=== PATIENT | female | born 1960 | race Caucasian/White ===

== ENCOUNTER 2024-02-29 16:46 | Emergency (ER) | payer BC, SELFPAY ==
[2024-02-29] VITALS (96 sets, daily range): BP systolic 163–175; BP diastolic 70–78; PULSE 67–75; RESP 8–29; TEMP 36.6; O2SAT 97–100
--- NOTE | 2024-02-29 16:45 | DI.CT_ITS ---
Exam(s) CT HEAD CERV SPINE FACIAL WO EXAM: CT HEAD CERV SPINE FACIAL WO CLINICAL HISTORY: cervical spine tenderness, left facial ecchymosis. TECHNIQUE: Imaging Protocol: Axial computed tomography images with coronal and sagittal reformatted images were created and reviewed COMPARISON: No exams were available for comparison FINDINGS: CT Head: Ventricles and Extra axial spaces: Normal in size and morphology for the patient's age. Hemorrhage: None. Cerebral parenchyma: No evidence of acute hemorrhage or acute infarct. Midline shift: None. Brainstem/Cerebellum: Normal. Calvarium: Normal. Visualized Paranasal sinuses/Mastoids: Clear. Soft Tissues: Unremarkable. CT Face: Facial Bones: Mildly displaced nasal fractures. No additional fractures. Nasal septum deviated tow nita the left. Sinuses and Mastoids: Unremarkable. Globes, extraocular muscles, optic nerves and retrobulbar fat: Normal. Upper aerodigestive tract: Normal. Mandible and bilateral temporomandibular joints: Normal. Soft tissues: Swelling over left maxillary region. CT Cervical Spine: Bones: Mildly comminuted, nondisplaced fracture of the left lateral mass of C1. Fractures of the spi nous processes of C3 through C6. Mildly displaced fracture of the left 1st rib. Fractures of the ri ght 3rd and 4th ribs visible. Degenerative changes greatest at C6-7. Soft Tissues: Tiny right pneumothorax. Lung Apices: Clear. IMPRESSION: 1. No acute intracranial process. 2. Nondisplaced fracture of the lateral mass of C1. Fractures of the spinous processes of C3 through C6. Bilateral rib fractures. Tiny right pneumothorax. 3. Mildly displaced nasal fractures. RADIATION DOSE DELIVERED: Total DLP DATA REPOSITORY: All CT scans at this facility are submitted to the National Radiology Data Registry (NRDR) Dose Index Registry (DIR) with the [employer] (ACR). RADIATION OPTIMIZATION: All CT scans at this facility use at least one of these dose optimization te chniques: automated exposure control; mA and/or kV adjustment per patient size (includes targeted exa ms where dose is matched to clinical indication); or iterative reconstruction.
--- NOTE | 2024-02-29 16:45 | RT.EKG_ITS ---
APPROVED REPORT Exam: Resting ECG Reason for Exam: chest wall contusion Patient Location: E HR:76 bpm ECG Measurements Heart Rate 76 AXIS CA 154 P 64 QRSd 86 QRS 60 QT 389 T 38 QTc 437 Conclusion Sinus rhythm 76 no stemi
--- NOTE | 2024-02-29 16:57 | DI.CT_ITS ---
Exam(s) CT CHEST/ABD/PEL W CT THORACIC LUMBAR SPINE REC EXAM: CT CHEST/ABD/PEL W CLINICAL HISTORY: right chest trauma, thoracic pain. TECHNIQUE: Imaging Protocol: Axial computed tomography images with coronal and sagittal reformatted images were created and reviewed. Axial, coronal and sagittal images of the thoracic and lumbar spine were reconstructed from the chest abdomen pelvic CT in bone and soft tissue algorithm. CONTRAST MATERIAL: Intravenous: Omnipaque 350 Contrast volume:100 ml Oral: no COMPARISON: CT CT THORACIC LUMBAR SPINE REC from 02/29/2024 FINDINGS: CHEST: Tracheobronchial tree: Patent. Pulmonary parenchyma: No consolidation or dominant measurable mass. Basilar atelectasis. Pleura: Tiny bilateral pleural effusions. Tiny bilateral pneumothoraces. Mediastinum: Within normal limits. Aorta: Thoracic portion non-dilated. Pulmonary arteries: No visible emboli. Heart: No pericardial effusion. Bones: Ribs: Fractures of the proximal aspect of the rights 1st and 2nd ribs. Fracture of the posterior asp ect of the right 3rd through 9th ribs. Fracture posterior left 1st rib. Fractures of the left 2nd t hrough 6th as well as 9th and 10th ribs. Thoracic spine: Fracture of the tip of the spinous process of T7. Fracture through the left transverse process of and left inferior articular facet of T8 as well as sp inous process and left lamina. Mild compression fracture of the anterior superior endplate of T9 with minimal retropulsion. Fractur e extends to involve the left transverse process, left pedicle and pars interarticularis. Small bony fragment seen in the right T9-10 neural foramen. Mild compression fracture of the superior endplate of T10 some mild compression of the superior endpl ate of T11 with minimal retropulsion. No lytic or blastic lesions.Soft tissues: Unremarkable. ABDOMEN and PELVIS: Liver: Normal density. No measurable mass. Gallbladder and biliary tract: No evidence of stones or wall thickening. No biliary dilatation. Pancreas: Normal density, no abnormal calcifications or inflammatory process. Spleen: Normal. Kidneys: Normal size, contour and axis. No radiodense stones. No obstructive uropathy. No suspicious masses seen. Adrenal glands: No masses seen. Aorta: Abdominal portion non-dilated. Lymph nodes: Within normal limits. Soft tissues: Unremarkable. Bladder: Unremarkable. Bowel: No obstruction or bowel wall thickening. Peritoneal cavity: No ascites. No focal collection. No mesenteric inflammatory response. No free ai r. Bones: No evidence of acute fracture in the spine or pelvis. Degenerative changes noted from L2-3 th rough L5-S1. Scoliosis also present. Reproductive organs: Within status post hysterectomy. IMPRESSION: Multiple bilateral rib fractures. Tiny pneumothoraces in small bilateral pleural effusions. Mild compression fractures of the T9 through T11 vertebral bodies. Fractures of the posterior elemen ts at T7, T8 and T9. T8 and T9 segments may be unstable. No evidence of internal organ injury in the abdomen or pelvis. No evidence of lumbar spine fracture.. RADIATION DOSE DELIVERED: Total DLP DATA REPOSITORY: All CT scans at this facility are submitted to the National Radiology Data Registry (NRDR) Dose Index Registry (DIR) with the [employer] (ACR). RADIATION OPTIMIZATION: All CT scans at this facility use at least one of these dose optimization te chniques: automated exposure control; mA and/or kV adjustment per patient size (includes targeted exa ms where dose is matched to clinical indication); or iterative reconstruction.
--- NOTE | 2024-02-29 17:00 | DI.RAD_ITS ---
Exam(s) XR HUMERUS RT XR SHOULDER RT COMPLETE 2+V EXAM: XR SHOULDER RT COMPLETE 2+V CLINICAL HISTORY: trauma. TECHNIQUE: 2D digital imaging was performed. Six views of the shoulder.. Two views of the humerus. COMPARISON: CR,XR XR HUMERUS RT from 02/29/2024 FINDINGS: BONES: Fractures of the right 3rd through 6th ribs. No fractures involving the shoulder or humerus. No bony destructive lesion is seen. JOINTS: No dislocation present. SOFT TISSUE: Normal. No visible pneumothorax. IMPRESSION: right rib fractures. No visible pneumothorax. No evidence of shoulder or humeral fracture. DATA REPOSITORY: RADIATION DOSE DELIVERED:
--- NOTE | 2024-02-29 17:00 | DI.RAD_ITS ---
Exam(s) XR HAND RT COMPLETE EXAM: XR HAND RT COMPLETE CLINICAL HISTORY: trauma. TECHNIQUE: 2D digital imaging was performed. Three views. COMPARISON: No exams were available for comparison FINDINGS: BONES: Fractures of the distal 4th and 5th metacarpals with significant ventral angulation and displa cement, greater of the 5th metacarpal. No bony destructive lesion is seen. JOINTS: No dislocation present. Advanced degenerative changes 1st carpal metacarpal joint. Mild deg enerative changes elsewhere. SOFT TISSUE: Normal. IMPRESSION: Fourth and 5th metacarpal fractures. DATA REPOSITORY: RADIATION DOSE DELIVERED:
[2024-02-29] MEDS: Normal Saline 1,000 ML 1000 ML IV (17:02)
--- NOTE | 2024-02-29 17:03 | DI.RAD_ITS ---
Exam(s) XR HAND LT COMPLETE EXAM: XR HAND LT COMPLETE CLINICAL HISTORY: trauma. TECHNIQUE: 2D digital imaging was performed. Three views. COMPARISON: CR,XR XR HAND RT COMPLETE from 02/29/2024 FINDINGS: BONES: Nondisplaced fracture base of 5th metacarpal. No bony destructive lesion is seen. JOINTS: No dislocation present. Degenerative changes 1st carpal metacarpal joint. SOFT TISSUE: Normal. IMPRESSION: Nondisplaced fracture base of 5th metacarpal. DATA REPOSITORY: RADIATION DOSE DELIVERED:
[2024-02-29] MEDS: fentaNYL 100 MCG/2 ML VIAL 50 MCG IVP (17:15)
[2024-02-29] MEDS: Omnipaque 350 MG/ML 100 ML BTL IJ (17:34)
[2024-02-29] MEDS: Normal Saline - Diluent 50 ML VIAL IJ (17:34)
--- NOTE | 2024-02-29 19:03 | DI.VRAD_ITS ---
Addendum created by Sincere Arita MD on 02/29/2024 7:24:28 PM EDT: THIS REPORT CONTAINS FINDINGS THAT MAY BE CRITICAL TO PATIENT CARE. The findings were verbally communicated via telephone conference with Norma Hopkins at 7:24 PM EDT on 02/29/2024. The findings were acknowledged and understood. Initial report created on 02/29/2024 7:03:00 PM EDT: PROCEDURE INFORMATION: Exam: CT Head Without Contrast Exam date and time: 02/29/2024 5:30 PM Age: 63 years old Clinical indication: Other: Trauma, cervical spine tenderness, left facial ecchymosis; Other: Left facial ecchymyosis, trauma TECHNIQUE: Imaging protocol: Computed tomography of the head without contrast. COMPARISON: No relevant prior studies available. FINDINGS: Brain: No intracranial hemorrhage. No cerebral edema. No mass or mass effect. Mild cerebral atrophy appropriate for patient's age. Cerebral ventricles: No ventriculomegaly. Paranasal sinuses: No sinus air-fluid levels. Mastoid air cells: Visualized mastoid air cells are well aerated. Bones: No skull fracture. Soft tissues: Unremarkable. IMPRESSION: 1. No intracranial hemorrhage or cerebral edema. 2. No skull fracture. PROCEDURE INFORMATION: Exam: CT Maxillofacial Without Contrast Exam date and time: 02/29/2024 5:30 PM Age: 63 years old Clinical indication: Other: Trauma, cervical spine tenderness, left facial ecchymosis; Other: Left facial ecchymyosis, trauma TECHNIQUE: Imaging protocol: Computed tomography of the face without contrast. Radiation optimization: All CT scans at this facility use at least one of these dose optimization techniques: automated exposure control; mA and/or kV adjustment per patient size (includes targeted exams where dose is matched to clinical indication); or iterative reconstruction. COMPARISON: No relevant prior studies available. FINDINGS: Orbital cavities: Ocular globes and orbital contents are unremarkable. Paranasal sinuses: No sinus air-fluid levels. Bones: Mild nasal bone fractures with a slight rightward deviation of the nasal structures. Soft tissues: Left maxillary facial soft tissue swelling and soft tissue emphysema consistent with a laceration type injury. There is a hematoma. There is no foreign body. IMPRESSION: 1. Possible nasal bone fracture. Recommend clinical correlation. This could be a chronic process. There is a rightward deviation of the anterior aspect of the nasal bone. Facial bones are otherwise intact. 2. Left maxillary soft tissue contusion and laceration with soft tissue emphysema. No foreign body. PROCEDURE INFORMATION: Exam: CT Cervical Spine Without Contrast Exam date and time: 02/29/2024 5:30 PM Age: 63 years old Clinical indication: Other: Trauma, cervical spine tenderness, left facial ecchymosis; Other: Left facial ecchymyosis, trauma TECHNIQUE: Imaging protocol: Computed tomography of the cervical spine without contrast. COMPARISON: No relevant prior studies available. FINDINGS: Bones: Multilevel cervical spine fractures. Fractures of the spinous processes with displacement at C3, C4, C5, and C6. Fracture of the left lateral portion of the bifid spinous process at C3. Mild displacement. Fracture across the base of the spinous process at C4 with moderate leftward displacement. Fracture of the spinous process and left lamina at C5 with moderate displacement. Fracture of the bifid spinous process at C6 with [id number] displacement. Fracture of the left lateral mass of C1. Mild comminution. No significant displacement. See series 16: Image 155 through 159. This is also evident on series 19: Image 25. Posterior right 3rd and 4th rib fractures with mild displacement. Fracture of the left 1st rib. Series 16: Image 340. Mild displacement. Lungs: Lung apices are normal. Pleural spaces: There is a very minor right pneumothorax seen on series 16: Image 413 with application of lung windows. Soft tissues: Unremarkable. IMPRESSION: 1. Multilevel cervical spine fractures. Fractures of the spinous processes C3 through C6. Involvement of the left lamina at C5. The spinous process fractures show [id number] displacement. 2. Fracture of the left lateral mass of C1 with mild comminution. No significant displacement. 3. No dislocation of the cervical spine. 4. Rib fractures are noted involving the posterior right 3rd and 4th ribs and left 1st rib. Minor displacement. Incompletely imaged by current study. 5. Minor right pneumothorax is suggested. There is a small focus of extra pulmonic air seen posteriorly adjacent to the 3rd and 4th rib fractures. Dictated and Authenticated by: Sincere Arita MD. Ordering:WYATT Green MD
[2024-02-29] MEDS: fentaNYL 100 MCG/2 ML VIAL 75 MCG IVP ×2 (19:20→20:45)
--- NOTE | 2024-02-29 19:20 | DI.VRAD_ITS ---
PROCEDURE INFORMATION: Exam: CT Thoracic Spine Without Contrast Exam date and time: 02/29/2024 5:43 PM Age: 63 years old Clinical indication: Other: Trauma, back pain TECHNIQUE: Imaging protocol: Computed tomography of the thoracic spine without contrast. Radiation optimization: All CT scans at this facility use at least one of these dose optimization techniques: automated exposure control; mA and/or kV adjustment per patient size (includes targeted exams where dose is matched to clinical indication); or iterative reconstruction. COMPARISON: CT CHEST/ABD/PEL W 02/29/2024 5:43 PM FINDINGS: Bones/joints: T1-T6: Intact. T7: Acute fracture through the left transverse process and through the tip of the spinous process. T8: Acute fracture through the left transverse process. Acute fracture through the left inferior articular facet, left lamina, spinous process, and through the inferomedial aspect of the right lamina. T9: Compression/burst type fracture through the upper vertebral body with mild loss of anterior vertebral height and fracture extension through the posterior vertebral wall but no retropulsion of fracture fragments into the central canal. Posterior fracture extension through the left pedicle and left pars interarticularis with lateral fracture extension through the left transverse process. Small bony fragment noted in the right T9-T10 neural foramen on image 36 of series 16. T10: Compression/burst type fracture through the upper vertebral body with mild loss of anterior vertebral height and fracture extension through the posterior vertebral wall. Bony fragment in the right T9-T11 neural foramen, as above. T11: Compression/burst type fracture through the upper vertebral body with mild loss of central vertebral height and fracture extension through the posterior vertebral wall. T12: Intact. No significant central canal narrowing is demonstrated. Soft tissues: No gross superficial soft tissue fluid collection or mass is seen through the visualized thoracic region. Notes: CT imaging through the chest was obtained concurrently, will be separately. Multiple rib fractures are redemonstrated. IMPRESSION: Multiple acute posterior element and vertebral fractures at T7 through T11, as described. These fractures in concert result in an unstable thoracic spinal segment; however, no significant central canal narrowing is demonstrated. PROCEDURE INFORMATION: Exam: CT Lumbar Spine Without Contrast Exam date and time: 02/29/2024 5:43 PM Age: 63 years old Clinical indication: Other: Trauma, back pain TECHNIQUE: Imaging protocol: Computed tomography of the lumbar spine without contrast. Radiation optimization: All CT scans at this facility use at least one of these dose optimization techniques: automated exposure control; mA and/or kV adjustment per patient size (includes targeted exams where dose is matched to clinical indication); or iterative reconstruction. COMPARISON: CT CHEST/ABD/PEL W 02/29/2024 5:43 PM FINDINGS: Bones/joints: No acute lumbar fracture or malalignment is seen. There is mild S-shaped curvature through the lumbar region. T12-L1: Disc height preserved. No focal disc herniation. No significant central canal narrowing or neural foraminal narrowing. L1-L2: Disc height preserved. No focal disc herniation. No significant central canal narrowing or neural foraminal narrowing. L2-L3: Loss of disc height with a vacuum disc deformity and a Schmorl's node in the superior L3 endplate. Anterior osteophytes. Posterior osteophytic ridging. Severe facet arthrosis on the right. Moderate facet arthrosis on the left. Mild central canal narrowing. Mild left-sided foraminal narrowing. Moderate-severe right-sided foraminal narrowing with deformity of the right L2 nerve root. L3-L4: Loss of disc height with endplate irregularity and a vacuum disc deformity. Anterior osteophytes. Posterior osteophytic ridging. Moderate bilateral facet arthrosis. No significant central canal narrowing. Moderate left and moderate-severe right-sided foraminal narrowing with osteophytic material abutting and mildly deforming the right L3 nerve root. L4-L5: Loss of disc height. Vacuum disc deformity. Endplate irregularity. Anterior osteophyte formation. Posterior osteophytic ridging. Moderate facet arthrosis on the left. No significant central canal narrowing. Moderate bilateral foraminal narrowing with osteophytic material abutting the L4 nerve roots bilaterally and mildly deforming the left L4 nerve root. L5-S1: Loss of disc height with a vacuum disc deformity. Anterior osteophytes and posterior osteophytic ridging. No significant central canal narrowing. Moderate foraminal narrowing on the right. Moderate-severe foraminal narrowing on the left with partial flattening of the left L5 nerve root. Soft tissues: No gross superficial soft tissue fluid collection or mass is seen through the visualized lumbar region. Notes: CT imaging through the abdomen obtained concurrently, dictated separately. IMPRESSION: 1. No acute lumbar fracture or malalignment is seen. 2. Lumbar degenerative changes, as detailed level by level above. Dictated and Authenticated by: Jase John MD. Ordering:WYATT Green MD
--- OUTSIDE RECORDS SUMMARY | 2024-02-29 19:26 | XMS_ITS ---
Continuity of Care Document (CCD) Created on: February 29, 2024 Kele[facility]ie External Reference #: [id number] : [id number] Sex: Female Author Organization [facility] Address [address] [place] [address] Phone [phone] Problems Active Problems Provider Date Anemia Onset: 3 Vitamin D deficiency Onset: 07/04 Screening for malignant neoplasm of colon Onset: 09/20/2011 Allergies and adverse reactions Description No Known Drug Allergies Medications Active Medications SIG Qnty Indications Ordering Provider Date [id number] Tablets Dispense 90 Take 1 tablet orally Every day Refills: 3 Unknown 01/10/2012 Vitamin D3 Super [id number] Capsules Dispense 90 Take 1 capsule (hard, soft, etc.) orally qd Refills: 3 Unknown 09/20/2011 Vitamin [id number] Tablets Dispense 90 Take 2 tablet orally qd Refills: 3 Unknown 09/20/2011 Results Test Acquired Date Facility Test Result H/L Range N ote Ferr 08/17/2013 Ferr 111 Iron 08/17/2013 Iron 53 A1c 06/23/2013 A1c 5.6 CBC 06/23/2013 Gran % 61.8 HCT 40.9 HGB 13.7 Lymph % 31.1 MCH 32.7 MCHC 33.5 MCV 97.5 Mid % 7.1 PLT 254 RBC 4.19 RDW 11.1 WBC 4.3 Cki 06/23/2013 Cki 81 FT4 06/23/2013 FT4 0.99 HSCRP 06/23/2013 HSCRP 0.2 Hepatic Function Panel 06/23/2013 Alb 4 Alp 83 Alt 37 Ast 21 Dbil 0.07 TP 7.1 Tbil 0.4 Lipid Panel 06/23/2013 Chol 213 HDL Risk 3 Hdl 71 LDLC 131 TGL 55 Metabolic Panel 06/23/2013 Agap 6 BUN/CR 14.4 Bun 13 CA 9.3 CL 99 Co2 30 Crea 0.9 Gluc 110 K 4.4 NA 135 Phos 06/23/2013 Phos 3.8 TSH 06/23/2013 TSH 1.04 Urca 06/23/2013 Urca 4.6
[2024-02-29 19:27] LABS: Bilirubin Negative (Negative); Blood Negative (Negative); Clarity Clear (Clear); Glucose Negative (Negative); Ketones 15 mg/dL (Negative); Leukocyte Esterase Negative (Negative); Nitrite Negative (Negative); Specific Gravity 1.015 (1.005-1.025); Urobilinogen 0.2 mg/dL (Up to 0.2); pH 6.5 (5-8)
[2024-02-29 19:29] LABS: Abs Immature Grans 0.08 10^3/uL (0.0-0.06); Absolute Basophil Count 0.03 10^3/uL (0.0-0.2); Absolute Lymphocyte Count 0.55 10^3/uL (1.2-3.4); Basophils % 0.2 %; HCT 35.4 % (36.0-46.0); HGB 11.7 g/dL (11.2-15.7); Immature Grans % 0.6 %; Lymphocytes % 4.3 %; MCH 31.3 pg (27.0-33.0); MCHC 33.1 % (32.0-36.0); MCV 95 fL (80-95); MPV 9.8 fL (8.0-11.0); Monocytes % 4.7 %; Neutrophils % 90.2 %; Platelet Count 204 10^3/uL (130-400); RBC 3.74 10^6/uL (3.93-5.22); RDW 11.9 % (11.7-14.6); RDW-SD 41.2 fL; WBC 12.68 10^3/uL (4.4-10.8)
[2024-02-29 19:31] LABS: Absolute Neutrophil Count 11.44 10^3/uL (1.2-6.7)
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
--- NOTE | 2024-02-29 19:36 | NUR.NOTE ---
Nursing Note: pt noted to desaturate prior to imaging, lowest saturation 85% on room air with good pleth. Started 2liters o2 via NC and saturation improved to 96-98%. Sats down to 89% while disconnected during transport to imaging; improved to 98% with supplemental o2 via NC. Pt has remained on supplemental o2. Provider aware.
--- NOTE | 2024-02-29 19:38 | DI.VRAD_ITS ---
Addendum created by Jase John MD on 02/29/2024 7:44:35 PM EDT: This case was discussed personally with Norma Neil at 7:44 PM EDT on 02/29/2024. Initial report created on 02/29/2024 7:37:55 PM EDT: PROCEDURE INFORMATION: Exam: CT Chest With Contrast; Diagnostic Exam date and time: 02/29/2024 5:43 PM Age: 63 years old Clinical indication: Other: Right chest trauma, thoracic pain TECHNIQUE: Imaging protocol: Diagnostic computed tomography of the chest with contrast. 3D rendering (Not supervised by radiologist): MIP and/or 3D reconstructed images were created by the technologist. Radiation optimization: All CT scans at this facility use at least one of these dose optimization techniques: automated exposure control; mA and/or kV adjustment per patient size (includes targeted exams where dose is matched to clinical indication); or iterative reconstruction. Contrast material: OMNI 350; Contrast volume: 100 ml; Contrast route: INTRAVENOUS (IV); COMPARISON: CT THORACIC LUMBAR SPINE REC 02/29/2024 5:43 PM FINDINGS: Lungs: Mild dependent atelectasis. No pulmonary laceration. Pleural spaces: Small bilateral pleural effusions, larger on the right. Tiny bilateral pneumothoraces, best demonstrated by the high-resolution lung algorithm images. Heart: Normal-sized heart. Lymph nodes: No pathologically enlarged mediastinal or hilar lymph nodes. Vasculature: No thoracic aortic aneurysm or dissection. Crescentic fluid density along the lateral margin of the inferior thoracic or aorta, suspected to lie in the pleural space, images 33-47 of series 5. No aortic wall irregularity through this region. Exam not tailored to evaluate the pulmonary arterial vasculature. Within the limits of the exam, no large central pulmonary embolism demonstrated in the pulmonary trunk or main pulmonary arteries. Bones/joints: CT imaging through the thoracic spine obtained concurrently, dictated separately. Multiple posterior element and vertebral fractures at C7-T11 resulting in an unstable spinal segment, as described in the thoracic spine report. Acute fracture through the posteromedial aspect of the right 1st and 2nd ribs. Acute fractures through the posterolateral-posterior aspect of the right 3rd-9th ribs. Acute fracture through the posterior aspect of the left 1st rib. Acute fractures through the posterolateral-posterior aspect of the left 2nd-6th, 9th and 10th ribs. Soft tissues: No gross soft tissue mass or fluid collection seen in the chest wall. IMPRESSION: 1. Multiple posterior element and vertebral fractures at C7-T11 resulting in an unstable spinal segment, as described in the dedicated thoracic spine report. 2. Acute fractures through the right 1st-9th ribs. Acute fractures through the left 1st-6th, 9th, and 10th ribs, as described. 3. Small bilateral pleural effusions, larger on the right. Tiny bilateral pneumothoraces demonstrated by the high-resolution lung algorithm images in keeping with hydropneumothoraces or hemopneumothoraces. PROCEDURE INFORMATION: Exam: CT Abdomen And Pelvis With Contrast Exam date and time: 02/29/2024 5:43 PM Age: 63 years old Clinical indication: Other: Right chest trauma, thoracic pain TECHNIQUE: Imaging protocol: Computed tomography of the abdomen and pelvis with contrast. 3D rendering (Not supervised by radiologist): MIP and/or 3D reconstructed images were created by the technologist. Radiation optimization: All CT scans at this facility use at least one of these dose optimization techniques: automated exposure control; mA and/or kV adjustment per patient size (includes targeted exams where dose is matched to clinical indication); or iterative reconstruction. Contrast material: OMNI 350; Contrast volume: 100 ml; Contrast route: INTRAVENOUS (IV); COMPARISON: CT THORACIC LUMBAR SPINE REC 02/29/2024 5:43 PM FINDINGS: Liver: Probable fatty infiltration of the liver, difficult to confidently diagnose by CT imaging after administration of intravenous contrast. Gallbladder and biliary ducts: Moderate gallbladder distension. No calcified gallstones or biliary dilatation. Pancreas: Normal appearing pancreas. Spleen: Normal appearing spleen. Adrenal glands: Normal appearing adrenal glands. Kidneys and ureters: Small indeterminate hypoattenuating right renal lesion, not well characterized but statistically most likely a small renal cyst. Otherwise normal-appearing kidneys. No hydronephrosis. No obstructing ureteral stones. Stomach and bowel: No oral contrast. Stomach moderately distended with fluid. No small bowel dilatation to suggest obstruction. Normal-appearing colon. No evidence of diverticulitis or colitis. Appendix: Normal appendix, best demonstrated by the coronal series. Intraperitoneal space: No gross ascites or free air. Vasculature: Normal caliber abdominal aorta. No aneurysmal dilatation or dissection. Lymph nodes: No pathologically enlarged mesenteric, retroperitoneal, or pelvic sidewall lymph nodes. Urinary bladder: Normal appearing urinary bladder. Reproductive: Prior hysterectomy. Ovaries not identified, obscured if present. Correlation with surgical history recommended. Bones/joints: CT imaging through the lumbar spine obtained concurrently, dictated separately. No acute fracture seen among the bones of the abdomen or pelvis. Spinal degenerative changes, as detailed in the dedicated report for the lumbar spine. Soft tissues: No significant ventral or inguinal hernia. IMPRESSION: No acute visceral or bony injury seen in the abdomen or pelvis. Dictated and Authenticated by: Jase John MD. Ordering:WYATT Green MD
[2024-02-29 19:40] LABS: INR 1.2 (0.9-1.1); Prothrombin Time 11.5 sec (9.1-11.1)
--- NOTE | 2024-02-29 19:41 | DI.VRAD_ITS ---
PROCEDURE INFORMATION: Exam: XR Right Humerus Exam date and time: 02/29/2024 6:00 PM Age: 63 years old Clinical indication: Other: Trauma TECHNIQUE: Imaging protocol: Radiologic exam of the right humerus. Views: 2 or more views. COMPARISON: CT CHEST/ABD/PEL W 02/29/2024 5:43 PM FINDINGS: Bones/joints: Frontal and lateral views of the right humerus reveal no acute fracture or dislocation. Soft tissues: No gross focal soft tissue abnormality is seen. IMPRESSION: No acute right humerus fracture demonstrated. Dictated and Authenticated by: Jase John MD. Ordering:WYATT Green MD
[2024-02-29 19:43] LABS: ALT 81 U/L (14-59); AST 72 U/L (15-37); Albumin 3.5 g/dL (3.4-5.0); Alkaline Phosphatase 80 U/L (46-116); Anion Gap 9.1 mmol/L (3-11); BUN 22 mg/dL (7-18); Bilirubin, Total 0.52 mg/dL (0.2-1.0); CO2 25.9 mmol/L (21.0-32.0); Chloride 101 mmol/L (98-107); Estimated GFR 62.91 (mL/min/1.73m2); Glucose 157 mg/dL (74-106); Lipase 35 U/L (16-77); Sodium 136 mmol/L (136-145); Total Protein 6.3 g/dL (6.4-8.2)
--- NOTE | 2024-02-29 19:49 | DI.VRAD_ITS ---
PROCEDURE INFORMATION: Exam: XR Left Hand Exam date and time: 02/29/2024 6:14 PM Age: 63 years old Clinical indication: Other: Trauma TECHNIQUE: Imaging protocol: Radiologic exam of the left hand. Views: 3 or more views. COMPARISON: No relevant prior studies available. FINDINGS: Bones/joints: PA, oblique, and lateral views of the left hand are submitted. There is a subtle linear lucency extending transversely through the base of the proximal 5th metacarpal on the oblique view with possible overlying soft tissue swelling. This finding is not redemonstrated on the other views. A subtle acute incomplete fracture could have this appearance; however, artifact is not confidently excluded. Correlation with physical exam for point tenderness in this location is recommended. Otherwise, no acute fracture is seen. There are prominent degenerative changes at the base of the thumb. Soft tissues: See Bones/joints finding. IMPRESSION: Possible subtle incomplete nondisplaced transverse fracture through the base of the left 5th metacarpal, uncertain finding. Correlation with physical exam is recommended to assess the patient for point tenderness in this location. Follow up imaging in 8-10 days could be obtained for additional evaluation. Dictated and Authenticated by: Jase John MD. Ordering:WYATT Green MD
--- NOTE | 2024-02-29 19:53 | DI.VRAD_ITS ---
PROCEDURE INFORMATION: Exam: XR Right Shoulder Exam date and time: 02/29/2024 6:03 PM Age: 63 years old Clinical indication: Other: Trauma TECHNIQUE: Imaging protocol: Radiologic exam of the right shoulder. Views: 2 or more views. COMPARISON: CR XR HUMERUS RT 02/29/2024 6:00 PM FINDINGS: Bones/joints: Three views of the right shoulder reveal no acute fracture or dislocation. Multiple acute right-sided rib fractures are partially redemonstrated, as described in the CT chest report. Soft tissues: No gross focal soft tissue abnormality is seen. IMPRESSION: 1. No acute fracture or dislocation seen at the right shoulder. 2. Multiple acute right-sided rib fractures partially redemonstrated. Dictated and Authenticated by: Jase John MD. Ordering:WYATT Green MD
[2024-02-29] MEDS: ACETAMINOPHEN 1,000 MG/100 ML BTL 400 MG IVPB (19:58)
--- NOTE | 2024-02-29 19:59 | DI.VRAD_ITS ---
PROCEDURE INFORMATION: Exam: XR Right Hand Exam date and time: 02/29/2024 6:10 PM Age: 63 years old Clinical indication: Other: Trauma TECHNIQUE: Imaging protocol: Radiologic exam of the right hand. Views: 3 or more views. COMPARISON: No relevant prior studies available. FINDINGS: Bones/joints: There is an acute fracture through the distal metaphysis of the right 4th metacarpal with palmar angulation of the distal fracture fragment. There is an acute oblique fracture through the distal shaft of the right 5th metacarpal with palmar angulation of the major distal fracture fragment. No additional acute fracture is seen. There is severe degenerative change at the base of the thumb. Soft tissues: There is soft tissue swelling associated with the metacarpal fractures. IMPRESSION: Acute fractures through the distal right 4th and 5th metacarpals, as described. Dictated and Authenticated by: Jase John MD. Ordering:WYATT Green MD
== END 2024-02-29 21:06 | disposition short-term general hospital (02) ==
PROVIDERS: Emergency Provider Physician Assistant
DX: S12.041A Nondisplaced lateral mass fracture of first cervical vertebra, initial encounter for closed fracture (principal); S12.290A Other displaced fracture of third cervical vertebra, initial encounter for closed fracture; S12.390A Other displaced fracture of fourth cervical vertebra, initial encounter for closed fracture; S12.490A Other displaced fracture of fifth cervical vertebra, initial encounter for closed fracture; S12.590A Other displaced fracture of sixth cervical vertebra, initial encounter for closed fracture; S22.43XA Multiple fractures of ribs, bilateral, initial encounter for closed fracture; S22.068A Other fracture of T7-T8 thoracic vertebra, initial encounter for closed fracture; S22.070A Wedge compression fracture of T9-T10 vertebra, initial encounter for closed fracture; S62.347A Nondisplaced fracture of base of fifth metacarpal bone, left hand, initial encounter for closed fracture; S62.394A Other fracture of fourth metacarpal bone, right hand, initial encounter for closed fracture; S62.396A Other fracture of fifth metacarpal bone, right hand, initial encounter for closed fracture; S02.2XXA Fracture of nasal bones, initial encounter for closed fracture; Z23 Encounter for immunization; V18.4XXA Pedal cycle driver injured in noncollision transport accident in traffic accident, initial encounter; Y92.482 Bike path as the place of occurrence of the external cause; Y93.55 Activity, bike riding
CPT/HCPCS: 74177; 80053; 83690; 86850; 86900; 86901; 90471; 93005; 96361; 96374; 96375; 96376; 99285; 70450; 70486; 71260; 72125; 73030; 73060; 73130; 81003; 85025; 85610; 93010; J0131; J3010; J3490